=== PATIENT | female | born 2000 | race Caucasian/White ===

== ENCOUNTER 2023-02-15 22:21 | Emergency (ER) | payer OTHER, SELFPAY ==
[2023-02-15 22:23] VITALS: BP 123/78; PULSE 91; RESP 18; TEMP 35.7; O2SAT 100; BMI 22.6
--- NOTE | 2023-02-16 01:02 | EX.ED.DYSGE1 ---
HPI History of Present Illness Chief Complaint: Dizziness Informant: patient Narrative Narrative: 22-year-old female presenting to the emergency room stating I just think I need to get checked out. She states that since Wednesday she has had episodes where she has a vague anterior chest discomfort associated with lower extremity tingling. She states at times her legs feel weak and she has lightheadedness. She has not had any syncope. She denies any bleeding. No fevers. No vomiting or diarrhea. No URI symptoms. She is not currently on any medications or take any [id number] medicines. She goes to [facility] and her primary care doctor is in [place]. Patient does not feel palpitations or sweaty. She denies any significant muscle spasms though she noted one in her gluteal region. PFSH PFSH Medical History Anxiety Asthma Seizures Smoker Home Medications medroxyprogesterone 150 mg/mL intramuscular suspension 150 mg IM .[id number] 02/16/23 [History Last Taken Unknown] Allergy/AdvReac Type Severity Reaction Status Date / Time No Known Allergies Allergy Verified 02/15/23 22:23 Social History Smoking Status: Current every day smoker tobacco type: e-cigarettes ROS ROS ED ROS Narrative Lightheadedness Constitutional Constitutional ED: Denies chills, fever(s), sweats or weight loss Eyes Eyes: Denies change in vision or diplopia ENT ENT ED: Denies ear pain, rhinorrhea or sore throat Cardiovascular Cardiovascular: Reports chest pain; Denies orthopnea, palpitations or racing heartbeat Respiratory/Chest Respiratory/Chest: Denies cough, dyspnea or orthopnea Gastrointestinal Gastrointestinal: Denies abdominal pain, diarrhea, nausea or vomiting Genitourinary Genitourinary ED: Denies dysuria, hematuria or urinary frequency Musculoskeletal Musculoskeletal: Denies arthralgias or myalgias Integumentary Denies abscess or rash Neurologic Neurologic: Reports paresthesias; Denies headache(s) or weakness Psychiatric Psychiatric: Denies anxiety, depression, suicidal ideation or suicidal thoughts Endocrine Endocrinology: Denies polydipsia, polyphagia or polyuria Allergic/Immunologic Allergic/Immunologic ED: Denies mouth swelling, tongue swelling or urticaria EXAM Physical Exam Const Vital Signs: 02/15/23 22:23 02/16/23 01:17 02/16/23 01:17 Temperature 96.3 F L Temperature Source Temporal Pulse Rate 91 85 Pulse Rate [Lying] 89 Pulse Rate [Sitting (for 1 minute prior to obtaining)] 82 Pulse Rate [Standing (for 1 minute prior to obtaining)] 94 Respiratory Rate 18 16 Blood Pressure 123/78 H 111/67 Blood Pressure [Lying] 111/67 Blood Pressure [Sitting (for 1 minute prior to obtaining)] 120/81 H Blood Pressure [Standing (for 1 minute prior to obtaining)] 132/67 H Blood Pressure Mean 93 81 Blood Pressure Mean [Lying] 81 Blood Pressure Mean [Sitting (for 1 minute prior to obtaining)] 94 Blood Pressure Mean [Standing (for 1 minute prior to obtaining)] 88 Pulse Ox 100 99 Oxygen Delivery Method Room Air Room Air 02/16/23 03:00 Temperature Temperature Source Pulse Rate 84 Pulse Rate [Lying] Pulse Rate [Sitting (for 1 minute prior to obtaining)] Pulse Rate [Standing (for 1 minute prior to obtaining)] Respiratory Rate 16 Blood Pressure 111/77 Blood Pressure [Lying] Blood Pressure [Sitting (for 1 minute prior to obtaining)] Blood Pressure [Standing (for 1 minute prior to obtaining)] Blood Pressure Mean 88 Blood Pressure Mean [Lying] Blood Pressure Mean [Sitting (for 1 minute prior to obtaining)] Blood Pressure Mean [Standing (for 1 minute prior to obtaining)] Pulse Ox 97 Oxygen Delivery Method Room Air Positive well nourished and well developed General Appearance ED: well developed HEENT Reports normocephalic, head/scalp atraumatic and moist mucous membranes Eyes PERRL and EOMs intact bilaterally Neck no lymphadenopathy, supple and no JVD Resp normal respiratory effort and clear to auscultation bilaterally Cardio regular rate, regular rhythm and no murmurs GI normal to inspection, nondistended, normoactive bowel sounds and non-tender Palpation: soft Back/Spine no CVA tenderness and normal ROM Extremity normal to inspection General Extremety ED: Negative for edema General Extremity: Negative for edema Neuro oriented x3 and CN's II-XII intact bilaterally Sensorium / Orientation: alert Motor Exam: strength 5/5 throughout Psych mental status grossly normal Mood & Affect: Negative for depressed or tearful Skin no rashes or lesions noted and no wounds MDM MDM MDM Narrative Medical decision making narrative: My independent interpretation of the chest x-ray is no acute process. CBC shows a white count 9.8 hemoglobin of 13.1 with a platelet count of 295. BMP showed a normal glucose potassium and sodium. Troponin is normal. does not have. Patient has been in a sinus rhythm. This point patient is neurologically intact. Cardiac evaluation appears normal. I do not see evidence of intrathoracic or neurologic emergency at this time. I would encourage her to follow-up with primary care if her symptoms are continuing or to return to the emergency department if new symptoms occur. She notes understanding. Lab Data Attestation: I reviewed the patient's lab results. Labs: Laboratory Results - last 24 hr 02/16/23 01:09 WBC 9.8 RBC 4.74 Hgb 13.1 Hct 40.3 MCV 85.0 MCH 27.6 MCHC 32.5 RDW Std Deviation 43.5 RDW Coeff of Taye 13.9 Plt Count 295 MPV 10.1 Immature Gran % (Auto) 0.400 Neut % (Auto) 52.0 Lymph % (Auto) 35.5 [place] % (Auto) 8.5 Eos % (Auto) 3.0 Baso % (Auto) 0.6 Absolute Neuts (auto) 5.1 Absolute Lymphs (auto) 3.47 Nucleated RBC % 0 Sodium 140 Potassium 3.7 Chloride 110 H Carbon Dioxide 24.0 Anion Gap 6 BUN 9 Creatinine 0.72 Estim Creat Clear Calc 103.10 Est GFR (MDRD) Af Amer 133 Est GFR (MDRD) Non-Af 110 BUN/Creatinine Ratio 12.6 Glucose 97 Calcium 8.6 Total Bilirubin 0.30 AST 15 ALT 22 Alkaline Phosphatase 111 Troponin I High Sens 4 Total Protein 7.3 Albumin 3.5 Globulin 3.8 Albumin/Globulin Ratio 0.9 Serum , Qual NEGATIVE Radiography Diagnostic Testing: Clinical Impression(s) from Imaging Studies Chest X-Ray 02/16/23 01:28 IMPRESSION: No radiographic evidence of acute cardiopulmonary disease. Electronically Signed: Hermilo Powell MD at 1:47 EDT , Discharge Plan Triage Chief Complaint: Dizziness Other Complaint: Chest Pain Lower Extremity Injury ED Provider: Jimbo Jackson Dx/Rx/DC Orders Clinical Impression: Paresthesia of bilateral legs, Chest pain Instructions: ED Chest Pain, Noncardiac, ED Dizziness, Uncertain Cause, ED Paraesthesias Prescriptions: No Action medroxyprogesterone 150 mg/mL suspension 150 mg IM .[id number] Primary Care Provider: Sharonda Cortez Referrals: NOT,DEFINED [Non-Staff] - Activity Restrictions/Additional Instructions: If persistent symptoms please follow-up with your primary care doctor return for worsening signs Disposition Disposition: Home, Self Care
[2023-02-16 01:17] VITALS: BP 111/67; BP 120/81; BP 132/67; PULSE 82; PULSE 85; PULSE 89; PULSE 94; RESP 16; O2SAT 99
[2023-02-16 01:18] LABS: Absolute Lymphocyte Count 3.47 X10^3/uL (0.83-4.51); Absolute Neutrophil Count 5.1 X10^3/uL (2.0-7.7); Basophil# 0.06 X10^3/uL; Basophil% 0.6 % (0-1); Eosinophil# 0.29 X10^3/uL; Hematocrit 40.3 % (37-47); Hemoglobin 13.1 g/dL (12.0-15.0); Lymphocyte # 3.47 X10^3/ul (0.83-4.51); Lymphocyte % 35.5 % (19-41); Mean Corp Hgb Conc 32.5 g/dL (32-36); Mean Corpuscular Hgb 27.6 pg (27.0-32.0); Mean Platelet Vol. 10.1 fl (6.2-12.0); Monocyte# 0.83 X10^3/uL; Monocyte% 8.5 % (0-10); NRBC Flagged by Analyzer 0 % (0-5); Neutrophil # 5.09 X10^3/uL (2.7-7.7); Platelet Count 295 K/mm3 (150-450); RBC Distribution Width CV 13.9 % (11.6-14.6); RBC Distribution Width SD 43.5 fl (35.1-43.9); Red Blood Count 4.74 M/mm3 (4.2-5.4); White Blood Count 9.8 K/mm3 (4.4-11.0)
[2023-02-16 01:27] LABS: Internal QC Validated? YES +Cl - CLEAR BKGD; Pregnancy, Serum, hCG Quali. NEGATIVE Negative
--- NOTE | 2023-02-16 01:28 | RAD_ITS ---
EXAM: XR CHEST, 1 VIEW CLINICAL INDICATION: chest pain TECHNIQUE: Frontal view of the chest. COMPARISON: No relevant prior studies available. FINDINGS: LUNGS AND PLEURAL SPACES: Unremarkable. No consolidation or edema. No pneumothorax. No effusion. HEART: Unremarkable. Cardiac silhouette not enlarged. MEDIASTINUM: Central airways and mediastinal contour are unremarkable. BONES/JOINTS: Unremarkable. SOFT TISSUES: Unremarkable. RAD/Chest 1 View (Portable) IMPRESSION: No radiographic evidence of acute cardiopulmonary disease. Electronically Signed: Hermilo Powell MD at 1:47 EDT ,
[2023-02-16 01:37] LABS: ALB/GLOB Ratio 0.9 RATIO (0.9-2.4); AST(SGOT) 15 U/L (15-37); Alanine Aminotransfer ALT/SGPT 22 U/L (13-56); Albumin, Serum 3.5 g/dL (3.2-5.0); Alkaline Phosphatase 111 U/L (45-117); Anion Gap 6 (5-15); BUN 9 mg/dL (7-18); BUN/Creat Ratio 12.6 RATIO (10-20); Calcium,Total 8.6 mg/dL (8.5-10.1); Chloride 110 mmol/L (98-107); Creatinine, Serum 0.72 mg/dL (0.55-1.02); EST Glomerular Filtration Rate 110 mL/min (>60); Est Glom Filt Rate - Afr Amer 133 mL/min (>60); Globulin 3.8 g/dL (2.2-4.2); Glucose 97 mg/dL (74-106); Potassium 3.7 mmol/L (3.5-5.1); Protein, Total 7.3 g/dL (6.4-8.2); Sodium Level 140 mmol/L (136-145); Troponin-I HS 4 pg/mL (3.0-54.0)
[2023-02-16 03:00] VITALS: BP 111/77; PULSE 84; RESP 16; O2SAT 97
[2023-02-16 03:29] VITALS: BP 102/57; PULSE 80; RESP 16; O2SAT 97
== END 2023-02-16 03:30 | disposition home or self-care (01) ==
PROVIDERS: Emergency Provider Emergency Medicine; PCP Family Medicine; Visit Provider Emergency Medicine
DX: R07.9 Chest pain, unspecified (principal); R20.2 Paresthesia of skin; F17.290 Nicotine dependence, other tobacco product, uncomplicated
CPT/HCPCS: 71045; 80053; 84484; 84703; 85025; 93005; 99284; A4216